=== PATIENT | male | born 1960 | race Caucasian/White ===

== ENCOUNTER 2018-08-24 13:30 | Emergency (ER) | payer SELFPAY ==
--- NOTE | 2018-08-24 15:26 | EKG REPORT ---
SEVERITY:- ABNORMAL ECG - SINUS RHYTHM CONSIDER ANTEROSEPTAL INFARCT : Confirmed by: Griffin Jenkins MD 24-Aug-2018 15:25:39
[2018-08-24] MEDS ORDERED: ASPIRIN 81 MG TABLET, CHEWABLE PO ONE (15:46)
--- NOTE | 2018-08-24 15:48 | ER Document Report ---
ED Medical Screen (RME) - General Chief Complaint: Chest Pain Stated Complaint: CHEST PAIN Time Seen by Provider: 08/24/18 15:42 Notes: Patient is a 57-year-old male presents to the emergency department for generalized mid sternal chest pain for the last 2 days. Patient states he has also had a cough and congestion. Patient states he recently moved here from [place] and in [place] he was to have a cardiac catheterization with a stent placement. States his daughter got sick and he had to move to [place] so he has not had a cardiac catheterization. Patient states he also has a history of COPD and is an every day smoker. Past medical history: Hypertension, COPD Allergies: None GENERAL: Alert, interacts well. No acute distress. HEART: Regular rate and rhythm. No murmur I have greeted and performed a rapid initial assessment of this patient. A comprehensive ED assessment and evaluation of the patient, analysis of test results and completion of the medical decision making process will be conducted by additional ED providers. TRAVEL OUTSIDE OF THE [place] IN LAST 30 DAYS: No - Related Data Allergies/Adverse Reactions: No Known Allergies Allergy (Verified 08/24/18 13:33) Physical Exam - Vital signs Vitals: Temp Pulse Resp BP Pulse Ox 97.9 F 48 L 18 146/90 H 95 08/24/18 13:44 08/24/18 13:44 08/24/18 13:44 08/24/18 13:44 08/24/18 13:44 Course - Vital Signs Vital signs: Temp Pulse Resp BP Pulse Ox 97.9 F 48 L 18 146/90 H 95 08/24/18 13:44 08/24/18 13:44 08/24/18 13:44 08/24/18 13:44 08/24/18 13:44
--- NOTE | 2018-08-24 16:23 | RADIOLOGY REPORT (SQ) ---
EXAM DESCRIPTION: CHEST SINGLE VIEW COMPLETED DATE/TIME: 08/24/2018 4:08 pm REASON FOR STUDY: CP COMPARISON: None. EXAM PARAMETERS: NUMBER OF VIEWS: One view. TECHNIQUE: Single frontal radiographic view of the chest acquired. RADIATION DOSE: NA LIMITATIONS: None. FINDINGS: LUNGS AND PLEURA: No opacities, masses or pneumothorax. No pleural effusion. MEDIASTINUM AND HILAR STRUCTURES: No masses. Contour normal. HEART AND VASCULAR STRUCTURES: Heart normal in size. Normal vasculature. BONES: No acute findings. HARDWARE: None in the chest. OTHER: No other significant finding. IMPRESSION: NO ACUTE RADIOGRAPHIC FINDING IN THE CHEST. TECHNICAL DOCUMENTATION: JOB ID: [id number] [employer]- All Rights Reserved Reading location - IP/workstation name: [email or web address]
[2018-08-24 16:57] LABS: ABSOLUTE BASOPHILS # (AUTO) 0.1 10^3/uL (0.0-0.2); ABSOLUTE EOSINOPHILS # (AUTO) 0.1 10^3/uL (0.0-0.6); ABSOLUTE LYMPHOCYTES (AUTO) 1.7 10^3/uL (0.5-4.7); ABSOLUTE NEUT (AUTO) 5.7 10^3/uL (1.7-8.2); BASOPHILS % (AUTO) 0.7 % (0-2); EOSINOPHILS % (AUTO) 1.7 % (0-6); HEMATOCRIT 43.5 % (37.9-51.0); MEAN CORPUSCULAR HEMOGLOBIN 34.5 pg (27.0-33.4); MEAN CORPUSCULAR HGB CONC 34.5 g/dL (32.0-36.0); MEAN CORPUSCULAR VOLUME 100 fl (80-97); MONOCYTES % (AUTO) 11.2 % (3-13); PLATELET COUNT 276 10^3/uL (150-450); RED BLOOD COUNT 4.36 10^6/uL (4.35-5.55); RED CELL DISTRIBUTION WIDTH 13.4 % (11.5-14.0); SEGMENTED NEUTROPHILS % (AUTO) 66.4 % (42-78); TOTAL CELLS COUNTED % (AUTO) 100 %; WHITE BLOOD COUNT 8.5 10^3/uL (4.0-10.5)
[2018-08-24 17:08] LABS: INTERNATIONAL RATION (INR) 0.92; PROTHROMBIN TIME 12.8 SEC (11.4-15.4)
[2018-08-24 17:16] LABS: ALANINE AMINOTRANSFERASE 24 U/L (21-72); ALBUMIN 4.5 g/dL (3.5-5.0); ALKALINE PHOSPHATASE 89 U/L (38-126); ANION GAP 11 (5-19); ASPARTATE AMINO TRANSFERASE 25 U/L (17-59); BILIRUBIN,DIRECT 0.2 mg/dL (0.0-0.4); BILIRUBIN,TOTAL 0.2 mg/dL (0.2-1.3); BLOOD UREA NITROGEN 14 mg/dL (7-20); CALCIUM 9.2 mg/dL (8.4-10.2); CARBON DIOXIDE 26 mmol/L (22-30); CHLORIDE 100 mmol/L (98-107); CREATINE KINASE 47 U/L (55-170); GLUCOSE 98 mg/dL (75-110); POTASSIUM 4.9 mmol/L (3.6-5.0); SODIUM 136.6 mmol/L (137-145); TOTAL PROTEIN 7.1 g/dL (6.3-8.2)
[2018-08-24 17:26] LABS: CREATINE KINASE MB 0.93 ng/mL (<4.55)
[2018-08-24 17:30] LABS: TROPONIN I < 0.012 ng/mL
[2018-08-24] MEDS ORDERED: IPRATROPIUM/ALBUTEROL 0.5-2.5 MG/3 ML AMPUL NEB ONE ×2 (21:36→22:04)
[2018-08-24] MEDS ORDERED: BUDESONIDE/FORMOTEROL 160-4.5 MCG 60 PUFF/6 GM MDI IH ONE (21:37)
[2018-08-24] MEDS ORDERED: METHYLPREDNISOLONE INJ 125 MG/2 ML SDV IV ONE (21:39)
[2018-08-24] MEDS ORDERED: IPRATROPIUM BROMIDE HFA 17 MCG/PUFF 200 PUFF/12.9 GM MDI IH ONE (22:15)
[2018-08-24] MEDS ORDERED: ALBUTEROL SULFATE HFA (90 MCG/PUFF) 8 GM MDI (1 MDI/ER DISP) IH ONE (23:22)
[2018-08-24 23:50] VITALS: BP 148/97
--- NOTE | 2018-08-25 04:07 | ER Document Report ---
Entered by EMILY GUILLERMO SCRIBE 08/24/18 [id number] Acting as scribe for:GAL LOYOLA DO ED General - General Chief Complaint: Chest Pain Stated Complaint: CHEST PAIN Time Seen by Provider: 08/24/18 15:42 Mode of Arrival: Ambulatory Information source: Patient Notes: 57-year-old male who presents to the emergency department today with complaints of running out of his medications. Patient states he recently moved here from [place]. Patient has ran out of his lisinopril with HCTZ, Symbicort, Ventolin, Atrovent, and Incruse. Patient states he has been out of his COPD medicine for 2-3 days. Patient also mentions he has had some sternal chest pain. Patient complains of a cough with light green sputum for the last 2-3 weeks. Patient denies any abdominal pain. TRAVEL OUTSIDE OF THE [place] IN LAST 30 DAYS: No - Related Data Allergies/Adverse Reactions: No Known Allergies Allergy (Verified 08/24/18 13:33) Past Medical History - General Information source: Patient - Social History Smoking Status: Current Some Day Smoker Chew tobacco use (# tins/day): No Frequency of alcohol use: None Drug Abuse: None Lives with: Family Family History: Reviewed & Not Pertinent Patient has suicidal ideation: No Patient has homicidal ideation: No - Past Medical History Cardiac Medical History: Reports: Hx Hypertension Pulmonary Medical History: Reports: Hx COPD Renal/ Medical History: Denies: Hx Peritoneal Dialysis Past Surgical History: Reports: Hx Orthopedic Surgery Review of Systems - Review of Systems Constitutional: No symptoms reported EENT: No symptoms reported Cardiovascular: See HPI, Chest pain Respiratory: See HPI, Cough, Short of breath Gastrointestinal: denies: Abdominal pain Genitourinary: No symptoms reported Male Genitourinary: No symptoms reported Musculoskeletal: No symptoms reported Skin: No symptoms reported Hematologic/Lymphatic: No symptoms reported Neurological/Psychological: No symptoms reported -: Yes All other systems reviewed and negative Physical Exam - Vital signs Vitals: Temp Pulse Resp BP Pulse Ox 97.9 F 48 L 18 146/90 H 95 08/24/18 13:44 08/24/18 13:44 08/24/18 13:44 08/24/18 13:44 08/24/18 13:44 Interpretation: Normal - General General appearance: Appears well, Alert - HEENT Head: Normocephalic, Atraumatic Eyes: Normal Pupils: PERRL - Respiratory Respiratory status: No respiratory distress Chest status: Nontender Breath sounds: Wheezing Chest palpation: Normal - Cardiovascular Rhythm: Regular Heart sounds: Normal auscultation Murmur: No - Abdominal Inspection: Normal Distension: No distension Bowel sounds: Normal Tenderness: Nontender Organomegaly: No organomegaly - Back Back: Normal, Nontender - Extremities General upper extremity: Normal inspection, Nontender, Normal color, Normal ROM, Normal temperature General lower extremity: Normal inspection, Nontender, Normal color, Normal ROM, Normal temperature, Normal weight bearing. No: Alex's sign - Neurological Neuro grossly intact: Yes Cognition: Normal Orientation: AAOx4 [place] Coma Scale Eye Opening: Spontaneous [place] Coma Scale Verbal: Oriented [place] Coma Scale Motor: Obeys Commands [place] Coma Scale Total: 15 Speech: Normal Motor strength normal: LUE, RUE, LLE, RLE Sensory: Normal - Psychological Associated symptoms: Normal affect, Normal mood - Skin Skin Temperature: Warm Skin Moisture: Dry Skin Color: Normal Course - Re-evaluation Re-evalutation: 08/25/18 Patient is a 57-year-old male with COPD who is out of most of his inhalers. He is wheezing on exam and feels better after nebulizer treatment. Patient has had chest pain recently but none in the emergency department. Blood work is normal including 2- troponins. Chest x-ray with no acute findings and no evidence for pneumonia. Patient ambulated in the department with no respiratory distress and maintains his oxygen saturation at 88% or higher. He feels better and is asking to go home. A social work consult has been placed for this patient so that he is able to get his inhaled medications for his COPD. He is to follow-up with his primary care doctor as soon as he is able. Stable at time of discharge. Return if any worsening or concerning symptoms. Understands agrees with plan. - Vital Signs Vital signs: Temp Pulse Resp BP Pulse Ox 99.3 F 84 20 148/97 H 90 L 08/24/18 23:54 08/24/18 23:54 08/24/18 23:54 08/24/18 23:54 08/24/18 23:54 - Laboratory Result Diagrams: 08/24/18 16:40 08/24/18 16:40 Laboratory results interpreted by me: 08/24/18 08/24/18 16:40 16:40 MCV 100 H MCH 34.5 H Sodium 136.6 L Creatine Kinase 47 L - Diagnostic Test Radiology reviewed: Reports reviewed - EKG Interpretation by Me EKG shows normal: Sinus rhythm Rate: Normal Discharge - Discharge Clinical Impression: COPD exacerbation, Atypical chest pain Condition: Stable Disposition: HOME, SELF-CARE Instructions: Chronic Obstructive Lung Disease ([facility]), Chest Pain of Unclear Cause ([facility]), Family Physicians / Practices Additional Instructions: Please follow-up with a doctor's office as soon as you are able. A social work consult has been placed to help you get your medications. Prescriptions: Albuterol Sulfate [Proair HFA Inhalation Aerosol 8.5 gm MDI] 2 puff IH Q4H PRN #1 mdi PRN Reason: Budesonide/Formoterol Fumarate [Symbicort Hfa 160-4.5 Mcg Inhaler 6 gm] 2 puff IH Q12 #1 inhaler Ipratropium [place] [Atrovent Hfa] 12.9 gm IH ASDIR PRN #1 hfa.aer.ad PRN Reason: Lisinopril/Hydrochlorothiazide [Lisinopril-Hctz 20-12.5 mg Tab] 1 each PO DAILY #30 tablet Prednisone [Deltasone 20 mg Tablet] 3 tab PO DAILY 4 Days tablet Umeclidinium [place] [Incruse Ellipta] 62.5 mcg IH ASDIR PRN #1 blst.w.dev PRN Reason: Scribe Attestation: 08/25/18 04:07 I personally performed the services described in the documentation, reviewed and edited the documentation which was dictated to the scribe in my presence, and it accurately records my words and actions. I personally performed the services described in the documentation, reviewed and edited the documentation which was dictated to the scribe in my presence, and it accurately records my words and actions.
== END 2018-08-25 00:03 | disposition home or self-care (01) ==
LOC: ER 13:30
DX: J44.1 Chronic obstructive pulmonary disease with (acute) exacerbation (principal); R07.9 Chest pain, unspecified; F17.200 Nicotine dependence, unspecified, uncomplicated; I10 Essential (primary) hypertension
CPT/HCPCS: 93005; 94640 ×2; 99285; 96374; 36415; 82553; 82550; 85025; 85610; 80053; 84484; 71045; 93010; J3490 ×3; J2930; J7620

== ENCOUNTER → 2019-01-06 | Outpatient (CLI) | payer OTHER ==
[~2019-01-06] MED LIST: ALBUTEROL SULFATE 0.083% NEB 2.5 MG/3 ML AMPUL NEB ONE
== END ==
LOC: RT 10:28
PROVIDERS: ATTEND Family Medicine
DX: J44.9 Chronic obstructive pulmonary disease, unspecified (principal)
CPT/HCPCS: 94060; 94761

== ENCOUNTER 2019-05-25 23:27 | Emergency (ER) | payer MEDICAID ==
--- NOTE | 2019-05-26 00:49 | RADIOLOGY REPORT (SQ) ---
CLINICAL HISTORY: bone pain COMPARISON: None. TECHNIQUE: XR ANKLE 3 OR MORE VIEWS 05/26/2019 12:00 AM CDT FINDINGS: There is an old fracture of the distal fibula. Joint spaces are preserved. There is lateral soft tissue swelling. Bones are osteopenic. There is a calcaneal spur. IMPRESSION: Old distal fibular fracture.
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
[2019-05-26] MEDS ORDERED: HYDROCODONE/ACETAMINOPHEN 5-325 MG TABLET PO ONE (02:27)
[2019-05-26 03:20] VITALS: BP 128/87
== END 2019-05-26 04:07 | disposition home or self-care (01) ==
LOC: ER 23:27
DX: M25.572 Pain in left ankle and joints of left foot (principal); W17.89XA Other fall from one level to another, initial encounter; F17.200 Nicotine dependence, unspecified, uncomplicated; J44.9 Chronic obstructive pulmonary disease, unspecified; I10 Essential (primary) hypertension
CPT/HCPCS: 99283

== ENCOUNTER 2019-08-12 08:21 | Day surgery (SDC) | payer MEDICAID ==
[~2019-08-12 08:21] MED LIST changes: -ALBUTEROL SULFATE 0.083% NEB 2.5 MG/3 ML AMPUL NEB ONE; +DORZOLAMIDE HCL 2%/TIMOLOL MALEAT 0.5% OPH SOLN 10 ML OS PRN; +KETOROLAC TROMETHAMINE 0.45% 4 DROP/0.4 ML DROPERETTE OS PRN; +MIDAZOLAM 2 MG/2 ML INJ ONE; +ONDANSETRON HCL INJ/PF 4 MG/2 ML SDV ONE
[2019-08-12] MEDS ORDERED: FENTANYL CITRATE INJ/PF 100 MCG/2 ML AMPUL ONE (08:22)
[2019-08-12] MEDS: TETRACAINE HCL 0.5% OPH SOLN 4 ML OS PRN ×3 (08:50→09:21)
[2019-08-12] MEDS: TROPICAMIDE 1% OPH SOLN 15 ML OS PRN ×3 (08:50→09:18)
[2019-08-12] MEDS: CYCLOPENTOLATE 0.2%/PHENYLEPHRINE 1% OPH SOLN 2 ML OS PRN ×3 (08:50→09:18)
[2019-08-12] MEDS: BESIFLOXACIN HCL 0.6% OPH SUSP 5 ML BOTTLE OS PRN ×3 (08:50→09:42)
[2019-08-12] MEDS ORDERED: CHONDR SU A NA/HYALUR INTRAOC KIT (SURGICARE) ONE (09:33)
[2019-08-12] MEDS ORDERED: EPINEPHRINE INJ/PF 1 MG/1 ML AMPULE ONE (09:33)
[2019-08-12] MEDS ORDERED: LIDOCAINE 1%/PHENYLEPHRINE 1.5% 1 ML VIAL ONE (09:33)
--- NOTE | 2019-08-13 07:43 | Operative Report ---
Operative Report-[facility] Operative Report: DATE OF SURGERY: 08/12/2019 PREOPERATIVE DIAGNOSIS: Cataracts, left eye POSTOPERATIVE DIAGNOSIS: Cataract, left eye OPERATION: Cataract extraction with insertion of an IOL of the left eye. Intraocular Lens Model: [20.5 sn60wf] Patient underwent surgery because difficulty seeing television and road signs SURGEON: Trent Tejada MD ANESTHESIA: Topical PROCEDURE: After obtaining appropriate consent, the patient's left eye was prepped and draped in a sterile fashion as well as the surgeon in the sterile manner and cataract surgery was started. First a paracentesis blade was used to make a side-port incision. Viscoelastic was used to inflate the anterior chamber. Next a 2.4 mm incision was made with a 2.4 mm blade, clear corneal temporarily. A continuous capsulorrhexis was made using a cystotome and Utrata forceps. Following this hydrodissection was carried out to make the lens fully loose and mobile and it was rotated 90 degrees. Following this, a divide and conquer technique was used to phacoemulsify the lens. The remaining cortex was removed with an irrigation/aspiration. Provisc was instilled into the capsular bag to inflate the bag.The intraocular lens was placed. The remaining viscoelastic material was removed with irrigation/aspiration. Following this, the incision was found to be watertight. Besivance and Cosopt was instilled into the eye and a protective shield was placed over the eye. The patient was returned to the postoperative recovery in a stable condition.
== END 2019-08-12 10:24 | disposition home or self-care (01) ==
LOC: SC 08:21
PROVIDERS: ATTEND Internal Medicine
DX: H25.89 Other age-related cataract (principal); H43.813 Vitreous degeneration, bilateral; Z96.1 Presence of intraocular lens; H52.4 Presbyopia; F17.210 Nicotine dependence, cigarettes, uncomplicated; I10 Essential (primary) hypertension; E78.00 Pure hypercholesterolemia, unspecified; Z79.899 Other long term (current) drug therapy; Z79.51 Long term (current) use of inhaled steroids
CPT/HCPCS: 66984; 00142; V2632; J2250; J3490 ×3; J0171; J3010; J2405; J2370; 142